=== PATIENT | male | born 1980 | race Caucasian/White ===

== ENCOUNTER 2024-11-05 15:45 | Outpatient (RCR) | payer OTHER, SELFPAY | END 2024-11-14 09:32 | disposition home or self-care (01) | PROVIDERS: Visit Provider Dentist Orthodontics and Dentofacial Orthopedics | DX: L90.5 Scar conditions and fibrosis of skin (principal); G50.1 Atypical facial pain; M79.10 Myalgia, unspecified site; R68.84 Jaw pain; Z51.89 Encounter for other specified aftercare | CPT/HCPCS: 97110; 97140; 97161 ==